=== PATIENT | male | born 1985 | race Caucasian/White ===

== ENCOUNTER 2016-10-24 20:28 | Emergency (ER) | payer MEDICAID ==
[~2016-10-24] VITALS: Ht 172.7 cm; Wt 109.8 kg
[2016-10-24] MEDS ORDERED: FAMOTIDINE 20 MG TABLET ONE (20:59)
[2016-10-24] MEDS ORDERED: FAMOTIDINE 20 MG TABLET PO ONE (21:00)
[2016-10-24 21:08] VITALS: BP 153/89
== END 2016-10-24 21:13 | disposition home or self-care (01) ==
LOC: ED 21:03
DX: L20.84 Intrinsic (allergic) eczema (principal); L24.9 Irritant contact dermatitis, unspecified cause
CPT/HCPCS: 99284; J7512; Q0177

== ENCOUNTER 2017-07-24 17:21 | Emergency (ER) | payer MEDICAID ==
[~2017-07-24] VITALS: Ht 182.9 cm; Wt 104.3 kg
[2017-07-24 17:24] VITALS: BP 158/96
== END 2017-07-24 18:55 | disposition home or self-care (01) ==
LOC: ED 18:00
DX: J20.8 Acute bronchitis due to other specified organisms (principal); B97.89 Other viral agents as the cause of diseases classified elsewhere
CPT/HCPCS: 71046; 99284

== ENCOUNTER 2017-08-01 19:32 | Emergency (ER) | payer MEDICAID ==
[~2017-08-01] VITALS: Ht 182.9 cm; Wt 106.0 kg
[2017-08-01 19:33] VITALS: BP 154/101
== END 2017-08-01 20:08 | disposition home or self-care (01) ==
LOC: ED 20:00
DX: J20.9 Acute bronchitis, unspecified (principal)
CPT/HCPCS: 99283; J7512

== ENCOUNTER 2017-12-01 21:53 | Emergency (ER) | payer MEDICAID ==
[~2017-12-01] VITALS: Ht 177.8 cm; Wt 105.0 kg
[2017-12-01 21:55] VITALS: BP 156/99
[2017-12-01] MEDS ORDERED: LIDOCAINE-MPF 2% ,5ML ONE (22:51)
[2017-12-01] MEDS ORDERED: LIDOCAINE 1%, 10ML INFIL ONE (23:00)
== END 2017-12-02 00:02 | disposition home or self-care (01) ==
LOC: ED 23:50
DX: L60.0 Ingrowing nail (principal)
CPT/HCPCS: 11730; 99283

== ENCOUNTER 2018-10-15 15:28 | Emergency (ER) | payer MEDICAID ==
[~2018-10-15] VITALS: Ht 172.7 cm; Wt 105.0 kg
[2018-10-15 15:29] VITALS: BP 148/92
[2018-10-15] MEDS ORDERED: LIDOCAINE-MPF 1%, 5ML ONE (15:45)
[2018-10-15] MEDS ORDERED: DIPH,PERTUSS(ACELL),TET VAC/PF 0.5 ML IM-VACC ONE ×2 (16:00→16:38)
[2018-10-15] MEDS ORDERED: LIDOCAINE-MPF 1%, 5ML INFIL ONE (16:00)
== END 2018-10-15 16:56 | disposition home or self-care (01) ==
LOC: ED 16:50
DX: S61.216A Laceration without foreign body of right little finger without damage to nail, initial encounter (principal); X58.XXXA Exposure to other specified factors, initial encounter; Y93.G1 Activity, food preparation and clean up; Y92.009 Unspecified place in unspecified non-institutional (private) residence as the place of occurrence of the external cause; Y99.8 Other external cause status
CPT/HCPCS: 12042; 90471; 90715

== ENCOUNTER 2020-01-08 21:51 | Emergency (ER) | payer MEDICAID, OTHER ==
[~2020-01-08] VITALS: Ht 167.6 cm; Wt 107.6 kg
[2020-01-08 22:33] VITALS: BP 130/86
--- NOTE | 2020-01-09 00:45 | NUR ---
pt to room from lobby
[2020-01-09] MEDS ORDERED: LIDOCAINE 1%-EPI 1:100K, 20ML ONE (00:49)
[2020-01-09] MEDS ORDERED: DIPH,PERTUSS(ACELL),TET VAC/PF 0.5 ML IM-VACC ONE ×2 (00:49→01:00)
[2020-01-09] MEDS ORDERED: LIDOCAINE 1%-EPI 1:100K, 20ML SQ ONE (01:00)
== END 2020-01-09 02:36 | disposition home or self-care (01) ==
LOC: ED 01-09 01:00
DX: L02.31 Cutaneous abscess of buttock (principal); L02.413 Cutaneous abscess of right upper limb; L72.3 Sebaceous cyst
CPT/HCPCS: 10061; 90471; 90715; 99284

== ENCOUNTER 2020-01-11 22:15 | Emergency (ER) | payer SELFPAY ==
[~2020-01-11] VITALS: Ht 167.6 cm; Wt 107.1 kg
[2020-01-11 22:18] VITALS: BP 156/86
--- NOTE | 2020-01-11 22:21 | NUR ---
TREATED BY PA IN TRIAGE AND DISCHARGED FROM THERE.
== END 2020-01-11 22:29 | disposition home or self-care (01) ==
LOC: ED 22:20
DX: L02.31 Cutaneous abscess of buttock (principal); L02.413 Cutaneous abscess of right upper limb; F17.200 Nicotine dependence, unspecified, uncomplicated; Z48.00 Encounter for change or removal of nonsurgical wound dressing
CPT/HCPCS: 99281

== ENCOUNTER 2020-02-01 23:58 | Emergency (ER) | payer MEDICAID, OTHER ==
[~2020-02-01] VITALS: Ht 167.6 cm; Wt 110.3 kg
[2020-02-02 00:02] VITALS: BP 129/89
[2020-02-02] MEDS ORDERED: LIDOCAINE 1%-EPI 1:100K, 20ML SQ ONE (03:00)
--- NOTE | 2020-02-02 04:42 | NUR ---
NOT IN LOBBY
== END 2020-02-02 04:53 | disposition left against medical advice (07) ==
LOC: ED 02-02 04:47
DX: L02.212 Cutaneous abscess of back [any part, except buttock and flank] (principal); Z53.21 Procedure and treatment not carried out due to patient leaving prior to being seen by health care provider

== ENCOUNTER 2020-02-02 14:13 | Emergency (ER) | payer MEDICAID ==
[~2020-02-02] VITALS: Ht 167.6 cm; Wt 107.9 kg
[2020-02-02 14:21] VITALS: BP 141/85
--- NOTE | 2020-02-02 14:38 | NUR ---
changed to phoebe choudhury. as
[2020-02-02] MEDS ORDERED: LIDOCAINE 1%-EPI 1:100K, 20ML ONE (14:41)
[2020-02-02] MEDS ORDERED: LIDOCAINE 1%-EPI 1:100K, 20ML SQ ONE (15:00)
== END 2020-02-02 15:56 | disposition home or self-care (01) ==
LOC: ED 15:30
DX: L02.31 Cutaneous abscess of buttock (principal); R50.9 Fever, unspecified
CPT/HCPCS: 10060; 99284

== ENCOUNTER 2020-02-04 20:39 | Emergency (ER) | payer MEDICAID ==
[~2020-02-04] VITALS: Ht 167.6 cm; Wt 107.6 kg
[2020-02-04 22:56] VITALS: BP 143/85
--- NOTE | 2020-02-04 23:03 | NUR ---
[employer]: PT TO ROOM FROM LOBBY
== END 2020-02-04 23:45 | disposition home or self-care (01) ==
LOC: ED 23:41
DX: Z48.01 Encounter for change or removal of surgical wound dressing (principal)
CPT/HCPCS: 99283

== ENCOUNTER 2020-02-06 20:55 | Emergency (ER) | payer MEDICAID, OTHER ==
[~2020-02-06] VITALS: Ht 167.6 cm; Wt 109.0 kg
[2020-02-06 21:04] VITALS: BP 128/74
== END 2020-02-06 21:45 | disposition home or self-care (01) ==
LOC: ED 21:00
DX: Z48.01 Encounter for change or removal of surgical wound dressing (principal)
CPT/HCPCS: 99281

== ENCOUNTER 2020-10-26 20:20 | Emergency (ER) | payer MEDICAID ==
[~2020-10-26] VITALS: Ht 167.6 cm; Wt 105.2 kg
[2020-10-26 20:27] VITALS: BP 146/101
[2020-10-26] MEDS ORDERED: LIDOCAINE-MPF 1%, 5ML ONE (21:51)
[2020-10-26] MEDS ORDERED: LIDOCAINE-MPF 1%, 5ML INFIL ONE (22:00)
== END 2020-10-26 23:11 | disposition home or self-care (01) ==
LOC: ED 22:32
DX: L02.416 Cutaneous abscess of left lower limb (principal)
CPT/HCPCS: 10060

== ENCOUNTER 2020-11-13 14:55 | Emergency (ER) | payer MEDICAID ==
[~2020-11-13] VITALS: Ht 172.7 cm; Wt 105.7 kg
[2020-11-13 15:02] VITALS: BP 140/93
== END 2020-11-13 15:49 | disposition home or self-care (01) ==
LOC: ED 15:41
DX: K13.0 Diseases of lips (principal)
CPT/HCPCS: 99283

== ENCOUNTER 2021-02-04 18:42 | Emergency (ER) | payer MEDICAID ==
[~2021-02-04] VITALS: Ht 167.6 cm; Wt 102.9 kg
--- NOTE | 2021-02-04 20:10 | NUR ---
pt to room from lobby
[2021-02-04] MEDS ORDERED: ASPIRIN 81 MG TABLET CHEW ONE (21:57)
[2021-02-04] MEDS ORDERED: ASPIRIN 81 MG TABLET CHEW PO ONE (22:00)
--- NOTE | 2021-02-04 22:20 | NUR ---
JAZMIN. PT SITTING ON SIDE OF BED TALKING TO FAMILY. LAB AT BEDSIDE. WILL CONTINUE TO MONITOR.
[2021-02-04 22:41] LABS: BASOPHILS % (AUTO) 1 % (0-1); EOSINOPHILS % (AUTO) 2 % (1-7); LYMPHOCYTES % (AUTO) 25 % (22-44); MEAN CORPUSCULAR HEMOGLOBIN 29.9 pg (27.5-34.5); MEAN CORPUSCULAR HGB CONC 34.6 g/dL (33.2-36.2); MONOCYTES % (AUTO) 7 % (2-9); NEUTROPHILS % (AUTO) 66 % (42-75); PLATELET COUNT 215 x10^3/uL (130-400); RED BLOOD COUNT 5.44 x10^6/uL (4.38-5.82); RED CELL DISTRIBUTION WIDTH 12.9 % (9.4-14.8)
[2021-02-04 22:49] LABS: ALBUMIN 4.4 g/dL (3.4-5.0); ANION GAP 4 mmol/L (5-15); CALCIUM 8.9 mg/dL (8.5-10.1); CHLORIDE 105 mmol/L (98-107); CREATININE 0.97 mg/dL (0.7-1.3)
[2021-02-04 22:55] LABS: ALANINE AMINOTRANSFERASE 46 U/L (12-78); ALKALINE PHOSPHATASE 62 U/L (45-117); BILIRUBIN,TOTAL 0.6 mg/dL (0.2-1.0); TOTAL PROTEIN 8.5 g/dL (6.4-8.2); TROPONIN I < 0.015 ng/mL (0.000-0.045)
[2021-02-04] MEDS ORDERED: METOPROLOL TARTRATE 50 MG TAB PO ONE (23:00)
[2021-02-04 23:20] VITALS: BP 157/86
== END 2021-02-04 23:22 | disposition home or self-care (01) ==
LOC: ED 19:00
DX: R07.89 Other chest pain (principal); R06.02 Shortness of breath; R94.31 Abnormal electrocardiogram [ECG] [EKG]; X50.0XXA Overexertion from strenuous movement or load, initial encounter; Y93.89 Activity, other specified; Y92.69 Other specified industrial and construction area as the place of occurrence of the external cause; Y99.0 Civilian activity done for income or pay
CPT/HCPCS: 36415; 71046; 80053; 84484; 85025; 85651; 93005; 99285